=== PATIENT | male | born 1980 | race Caucasian/White ===

== ENCOUNTER 2020-05-09 22:04 | Emergency (ER) | payer BC ==
[~2020-05-09] VITALS: Ht 185.4 cm; Wt 83.9 kg
[2020-05-09 22:08] VITALS: Ht 185.4 cm; Wt 83.9 kg
[2020-05-09 23:59] VITALS: BP 132/84
== END 2020-05-09 23:59 | disposition home or self-care (01) ==
LOC: D.ER 22:04
DX: S61.012A Laceration without foreign body of left thumb without damage to nail, initial encounter (principal); W26.0XXA Contact with knife, initial encounter; Y93.9 Activity, unspecified; Y92.9 Unspecified place or not applicable